=== PATIENT | female | born 1980 | race Caucasian/White ===

== ENCOUNTER → 2019-11-29 09:32 | Outpatient (BNVA) | payer BC, SELFPAY | PROVIDERS: Family Provider Family Medicine; PCP Family Medicine; Referring Provider Dermatology; Visit Provider Dermatology | DX: Z12.83 Encounter for screening for malignant neoplasm of skin (principal); D48.9 Neoplasm of uncertain behavior, unspecified; D22.9 Melanocytic nevi, unspecified; W89.1XXA Exposure to tanning bed, initial encounter; X58.XXXA Exposure to other specified factors, initial encounter; Z80.8 Family history of malignant neoplasm of other organs or systems | CPT/HCPCS: 11102; 11103; 88304; 88305; 99203 ==

== ENCOUNTER 2020-03-14 10:40 | Emergency (ER) | payer BC, SELFPAY ==
[2020-03-14 10:46] VITALS: BP 126/90; PULSE 118; RESP 18; TEMP 36.6; O2SAT 98; BMI 34.8
--- NOTE | 2020-03-14 10:58 | XR_ITS ---
WS: [id number] PORTABLE CHEST HISTORY: dyspnea/cough COMPARISON: None available. Lungs are clear and well expanded. No pleural effusion or pneumothorax. Cardiac size: Normal. Mediastinum/Aorta: Normal mediastinum. No osseous abnormality seen. XR/XR chest 1V portable [id number] IMPRESSION: Unremarkable portable chest.
--- NOTE | 2020-03-14 11:05 | W.ED.CHESTPA ---
HPI - Chest Pain General: Chief Complaint: Chest Pain Stated Complaint: Chest Pain/Tightness for 4 days/sob Time Seen by Provider: 03/14/20 10:56 History of Present Illness: HPI narrative: 39-year-old female who presents to the emergency room with complaint of chest discomfort for the last week. She states she always has a rapid heart rate she intermittently gets which she describes as tingling sensation in her chest radiating out. She has really noticed anything that makes it better or worse she has started taking an aspirin daily that seem to help some. She also feels like she has palpitations and shortness of breath with it but no diaphoresis. MD complaint: chest discomfort Onset (ago): week(s) Timing of current episode: episodic Prior episodes: Yes Onset: during rest Pain location: substernal Pain radiation: none Severity: mild Quality: tightness and shooting Relieving factors: nothing Exacerbating factors: nothing Associated symptoms: Reports dyspnea and palpitations; Deny abdominal pain, diaphoresis, fever(s), leg edema, nausea, sense of impending doom, syncope or vomiting Treatment prior to arrival: aspirin Review of Systems Const: Denies: diaphoresis ENMT: Denies: throat pain, ear or mastoid pain, nasal discharge or nasal congestion Card: Reports: palpitations; Denies: syncope Resp: Reports: dyspnea GI: Denies: abdominal pain, nausea or vomiting : Denies: flank pain, difficulty voiding, dysuria, urinary frequency or urinary urgency Skin/Breast: Denies: rash or pruritus PFSH ED PFSH: Family History Grandfather Cancer Father Cancer Social History Smoking and tobacco status: never smoked Physical Exam Const: COMMON NORMALS: no acute distress GENERAL APPEARANCE: cooperative and comfortable ORIENTATION/CONSCIOUSNESS: Yes awake, Yes oriented to person, Yes oriented to place and Yes oriented to time HENMT: COMMON NORMALS: normocephalic, atraumatic and hearing grossly normal bilaterally HEAD & SCALP: normocephalic and atraumatic Neck/C-Spine: COMMON NORMALS: no JVD Resp: COMMON NORMALS: normal respiratory effort, No retractions, No use of accessory muscles and clear to auscultation bilaterally AUSCULTATION: clear to auscultation bilaterally Cardio: COMMON NORMALS: no JVD, regular rhythm and No murmurs present (Cardio) RATE: tachycardic RHYTHM: regular rhythm GI: COMMON NORMALS: Soft to palpation and No hepatosplenomegaly present AUSCULTATION: Yes normoactive bowel sounds PALPATION: Yes Soft to palpation, No Tenderness to palpation present (GI), No Guarding due to palpation present (GI) and Yes No hepatosplenomegaly present Extremity: COMMON NORMALS: normal to inspection, capillary refill normal, no clubbing, cyanosis or edema, no calf tenderness and no pedal edema Neuro: SENSORIUM/ORIENTATION: Yes oriented to person, Yes oriented to place and Yes oriented to time Skin: COMMON NORMALS: no rashes or lesions noted GENERAL SKIN EXAM: no rashes or lesions noted Course Vital Signs: Vital signs: Vital Signs Temperature 97.9 F 03/14/20 10:46 Pulse Rate 90 03/14/20 14:22 Respiratory Rate 18 03/14/20 14:22 Blood Pressure 152/106 03/14/20 14:22 Pulse Oximetry 98 03/14/20 14:22 MDM - Chest Pain MDM Narrative: Medical decision making narrative: Patient has had this chest discomfort for over a week she states noise has a rapid heart rate she not very concerned about it while I was in the room at times it would go up in the 130s and 140s. Addition of that she has high blood pressure with blood pressures in the 150 systolic over 140 and started on just 12 and half milligrams daily of metoprolol and started on omeprazole set up for graded exercise stress test and a 24-hour Holter follow-up with her primary care doctor within the week to reevaluate blood pressure and heart rate return if has problems Lab Data: Labs: Lab Results 03/14/20 03/14/20 03/14/20 Range/Units 10:54 11:21 11:21 WBC 7.3 (4.0-10.0) 10^3/ uL RBC 4.87 (4.1-5.3) 10^6/u L Hgb 13.9 (11.5-15.3) g/dL Hct 41.4 (37.0-47.0) % MCV 85.0 (81-99) fL MCH 28.5 (28.0-34.0) pg MCHC 33.6 (30.0-36.0) g/dL RDW 12.6 (12.1-15.1) % Plt Count 354 (130-400) 10^3/c mm MPV 9.4 (7.4-10.4) fL Neut % (Auto) 54.0 % Lymph % (Auto) 36.3 % Hemphill % (Auto) 5.8 % Eos % (Auto) 3.2 % Baso % (Auto) 0.4 % Neut # (Auto) 3.95 (1.8-7.7) 10^3/u L Lymph # (Auto) 2.7 (0.8-4.8) 10^3/u L Hemphill # (Auto) 0.4 (0.2-0.9) 10^3/u L Eos # (Auto) 0.2 (0.0-0.8) 10^3/u L Baso # (Auto) 0.0 (0.0-0.1) 10^3/u L Nucleated RBC % (a uto) 0 % Nucleated RBCs # 0.0 /100WBC D-Dimer (0-0.59) ug/mIFE U Sodium 139 (136-145) mmol/L Potassium 3.9 (3.5-5.1) mmol/L Chloride 102 (98-107) mmol/L Carbon Dioxide 25 (22-29) mmol/L Anion Gap 15.9 (5-19) BUN 7 (6-20) mg/dL Creatinine 0.6 (0.5-0.9) mg/dL GFR Calculation 111.3 (90-130) mL/min Glucose 100 (65-115) mg/dL Calculated Osmolal ity 286 (285-295) mOsm/k g Calcium 9.4 (8.5-10.5) mg/dL Total Bilirubin 0.3 (0.15-1.2) mg/dL AST 18 (0-32) U/L ALT 12 (0-33) U/L Alkaline Phosphata se 50 (35-105) IU/L Creatine Kinase 68 (26-192) U/L Troponin T Gen 5 n g/L (0-10) ng/L Total Protein 7.0 (6.6-8.7) g/dL Albumin 4.3 (3.5-5.2) g/dL Globulin 2.7 (1.3-4.6) g/dL TSH 0.77 (0.27-4.20) uIU/ mL Urine Color Yellow (Yellow) Urine Appearance Clear (CLEAR) Urine pH 6.0 (5-7) Ur Specific Gravit y 1.010 (1.005-1.030) Urine Protein Neg (Negative) Urine Glucose (UA) Norm (Normal) Urine Ketones Negative (Negative) Urine Blood Neg (Negative) Urine Nitrate Negative (Negative) Urine Bilirubin Neg (Negative) Urine Urobilinogen Norm (Negative) mg/dL Ur Leukocyte Mandy ase Negative (Negative) 03/14/20 03/14/20 Range/Units 11:21 13:52 WBC (4.0-10.0) 10^3/ uL RBC (4.1-5.3) 10^6/u L Hgb (11.5-15.3) g/dL Hct (37.0-47.0) % MCV (81-99) fL MCH (28.0-34.0) pg MCHC (30.0-36.0) g/dL RDW (12.1-15.1) % Plt Count (130-400) 10^3/c mm MPV (7.4-10.4) fL Neut % (Auto) % Lymph % (Auto) % Hem[place]ill % (Auto) % Eos % (Auto) % Baso % (Auto) % Neut # (Auto) (1.8-7.7) 10^3/u L Lymph # (Auto) (0.8-4.8) 10^3/u L Hemphill # (Auto) (0.2-0.9) 10^3/u L Eos # (Auto) (0.0-0.8) 10^3/u L Baso # (Auto) (0.0-0.1) 10^3/u L Nucleated RBC % (a uto) % Nucleated RBCs # /100WBC D-Dimer 0.29 (0-0.59) ug/mIFE U Sodium (136-145) mmol/L Potassium (3.5-5.1) mmol/L Chloride (98-107) mmol/L Carbon Dioxide (22-29) mmol/L Anion Gap (5-19) BUN (6-20) mg/dL Creatinine (0.5-0.9) mg/dL GFR Calculation (90-130) mL/min Glucose (65-115) mg/dL Calculated Osmolal ity (285-295) mOsm/k g Calcium (8.5-10.5) mg/dL Total Bilirubin (0.15-1.2) mg/dL AST (0-32) U/L ALT (0-33) U/L Alkaline Phosphata se (35-105) IU/L Creatine Kinase (26-192) U/L Troponin T Gen 5 n g/L 6 (0-10) ng/L Total Protein (6.6-8.7) g/dL Albumin (3.5-5.2) g/dL Globulin (1.3-4.6) g/dL TSH (0.27-4.20) uIU/ mL Urine Color (Yellow) Urine Appearance (CLEAR) Urine pH (5-7) Ur Specific Gravit y (1.005-1.030) Urine Protein (Negative) Urine Glucose (UA) (Normal) Urine Ketones (Negative) Urine Blood (Negative) Urine Nitrate (Negative) Urine Bilirubin (Negative) Urine Urobilinogen (Negative) mg/dL Ur Leukocyte Mandy ase (Negative) Discharge Plan Discharge Patient Disposition: Home Clinical Impression: Atypical chest pain, Chest pain due to GERD, Heart palpitations, HTN (hypertension) Condition: Stable Prescriptions: New omeprazole 20 mg capsule,delayed release(DR/EC) 20 mg PO DAILY Qty: 30 RF: 0 Toprol XL 25 mg tablet extended release 24 hr 12.5 mg PO DAILY Qty: 20 RF: 0 No Action multivitamin [Daily Multi-Vitamin] Tablet 1 tab PO DAILY@22 RF: 0 aspirin 325 mg Tablet 325 mg PO DAILY RF: 0 Flonase 50 mcg/actuation [place],Suspension 1 - 2 spray INTRANASAL DAILY PRN (Reason: Allergy Symptoms) RF: 0 Augmentin 500-125 mg Tablet See Rx Instructions .ROUTE .COMPLEX RF: 0 Discharge Orders: Discharge ED (Routine); Ordered 03/14/20 Ordered By: Kush Momin Referrals: Janene Gilmore DO [Primary Care Provider] - Discharge Diet: Usual diet Discharge Activity: Resume usual activity Activity Restrictions/Additional Instructions: Case management will call with an appointment for an stress test. They will also call to set up a 24-hour Holter monitor. Coding Level of Care Code ED Supervisor [employer] for Ferming Fwd Exam Comprehensive
[2020-03-14 11:17] LABS: Add Urine Microscopic? NO
[2020-03-14 11:31] LABS: Basophils % 0.4 %; Eosinophils # 0.2 10^3/uL (0.0-0.8); Eosinophils % 3.2 %; Hematocrit 41.4 % (37.0-47.0); Hemoglobin 13.9 g/dL (11.5-15.3); Lymphocytes # 2.7 10^3/uL (0.8-4.8); Lymphocytes % 36.3 %; Mean Corpuscular HGB Conc 33.6 g/dL (30.0-36.0); Mean Corpuscular Hemoglobin 28.5 pg (28.0-34.0); Mean Platelet Volume 9.4 fL (7.4-10.4); Monocytes # 0.4 10^3/uL (0.2-0.9); Monocytes % 5.8 %; Neutrophils # 3.95 10^3/uL (1.8-7.7); Nucleated Red Blood Cells % 0 %; Platelet Count 354 10^3/cmm (130-400); Red Blood Count 4.87 10^6/uL (4.1-5.3); Red Cell Distribution Width 12.6 % (12.1-15.1); White Blood Count 7.3 10^3/uL (4.0-10.0)
[2020-03-14 11:40] LABS: Bilirubin Urine Neg (Negative); Blood Urine Neg (Negative); Glucose Urine UA Norm (Normal); Ketones Urine Negative (Negative); Leukocyte Esterase Urine Negative (Negative); Nitrate Urine Negative (Negative); Protein Urine Neg (Negative); Urine Appearance Clear (CLEAR); Urine Color Yellow (Yellow); Urobilinogen Urine Norm (Negative)
[2020-03-14 11:48] LABS: D Dimer 0.29 ug/mIFEU (0-0.59)
[2020-03-14 11:59] LABS: Alanine Aminotransferase 12 U/L (0-33); Albumin Level 4.3 g/dL (3.5-5.2); Alkaline Phosphatase 50 IU/L (35-105); Anion Gap 15.9 (5-19); Aspartate Amino Transferase 18 U/L (0-32); Blood Urea Nitrogen 7 mg/dL (6-20); Calcium 9.4 mg/dL (8.5-10.5); Carbon Dioxide 25 mmol/L (22-29); Chloride 102 mmol/L (98-107); Creatine Phosphokinase 68 U/L (26-192); Globulin 2.7 g/dL (1.3-4.6); Glomerular Filtration Rate 111.3 mL/min (90-130); Glucose 100 mg/dL (65-115); Osmolality Calculated 286 mOsm/kg (285-295); Potassium 3.9 mmol/L (3.5-5.1); Sodium 139 mmol/L (136-145); Thyroid Stimulating Hormone 0.77 uIU/mL (0.27-4.20); Total Bilirubin 0.3 mg/dL (0.15-1.2)
[2020-03-14 13:47] VITALS: BP 146/83; PULSE 104; RESP 20; O2SAT 99
[2020-03-14 14:22] VITALS: BP 152/106; PULSE 90; RESP 18; O2SAT 98
[2020-03-14 14:30] LABS: Troponin T (5th) Once 6 ng/L (0-10)
--- NOTE | 2020-03-14 14:45 | ECG_ITS ---
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 Measurements Intervals [place] Rate: 124 P: 33 MI: 108 QRS: 27 QRSD: 78 T: 38 QT: 299 QTc: 430 Interpretive Statements SINUS TACHYCARDIA WITH SHORT MI INTERVAL ABNORMAL RHYTHM ECG No previous ECG available for comparison Electronically Signed On 03-14-2020 21:05:17 INVESTMENT BANKING ASSOCIATE by Cindy Tellez M.D. [id number] f
[2020-03-14 15:15] VITALS: BP 152/106; PULSE 103; RESP 20; O2SAT 96
--- NOTE | 2020-03-15 14:53 | DCPLANNER ---
Addendum entered by Jennifer Robles 03/30/20 10:54: senior lead project manager was notified that patients insurance denied the out patient stress test. senior lead project manager called patient to inform patient of this, and to let patient know that she would need to follow up with primary care. senior lead project manager unable to speak with patient at this time, a voicemail was left for patient to return rn case mgr phone call. Original Note: senior lead project manager had message to schedule a follow up appointment for patient for an out patient stress test, and a 24 hour holter. senior lead project manager faxed order for a stress test to centralized scheduling and the order for the 24 hour holter monitor to [facility]. senior lead project manager will call for appointment information.
--- NOTE | 2020-03-17 11:32 | DCPLANNER ---
Addendum entered by Jennifer Robles 04/04/20 11:45: Patient did attend appointment scheduled for 03.29.20 with [facility]. Original Note: Patient has a follow up appointment scheduled for March 29 at 2:30. Clinic will call patient with appointment information.
== END 2020-03-14 15:16 | disposition home or self-care (01) ==
PROVIDERS: Emergency Provider Family Medicine; PCP Family Medicine
DX: R07.89 Other chest pain (principal); K21.9 Gastro-esophageal reflux disease without esophagitis; R00.2 Palpitations; I10 Essential (primary) hypertension; Z79.82 Long term (current) use of aspirin
CPT/HCPCS: 12345; 71045; 80053; 81003; 82550; 84443; 84484; 85025; 85378; 93005; 96374; 99281; 99283

== ENCOUNTER 2020-05-09 10:11 | Outpatient (CLI) | payer OTHER, SELFPAY ==
--- NOTE | 2020-05-09 10:58 | MR_ITS ---
WS: [id number] MRI HEAD WITH CONTRAST WITH ATTENTION TO THE INTERNAL AUDITORY CANALS TECHNIQUE: Sagittal T1, T2 axial, T2 axial flair, axial susceptibility weighted imaging, axial diffus ion weighted images, and coronal T2 images were obtained. Pre and post T1 axial and post T1 coronal i mages. ADC and FSPGR images. Post gadolinium images with attention to the internal auditory canals. A xial fiesta imaging. CLINICAL INFORMATION: DIZZINESS AND GIDDINESS COMPARISON: None. FINDINGS: No evidence of restricted diffusion to suggest acute ischemia. Ventricular system and basal cisterns are patent. No suspicious intracranial signal abnormalities. Normal posterior fossa. Normal vascular flow voids at the skull base. No extra-axial fluid collections. No evidence of mass or mass effect. P aranasal sinuses and mastoid air cells are well aerated. Small retention cyst left maxillary sinus. No hemosiderin on susceptibly weighted images. Proximal 7th and 8th cranial nerves are normal. No aubrey dence of enhancing IAC or CP angle mass. Normal trigeminal nerve root entry zones. Normal optic chias m and pituitary infundibulum. Normal cavernous sinuses and Meckel's cave. Normal dural venous sinuses . No abnormal intracranial enhancement. MR/MR iac's wo/w con* [id number] IMPRESSION: 1. No evidence of restricted diffusion to suggest acute ischemia. 2. No suspicious intracranial signal abnormalities. 3. Proximal 7th and 8th cranial nerves are normal in appearance. No evidence o f enhancing IAC or CP angle mass. 4. No hemosiderin on susceptibly weighted images. 5. Small retention cyst left maxillary sinus. Paranasal sinuses and mastoid ai r cells are otherwise well aerated.
== END 2020-05-09 10:12 | disposition home or self-care (01) ==
LOC: RADWPI 10:25
PROVIDERS: PCP Family Medicine; Visit Provider Specialist
DX: R42 Dizziness and giddiness (principal); M27.40 Unspecified cyst of jaw
CPT/HCPCS: 70553; A9577

== ENCOUNTER 2020-12-15 19:15 | Emergency (ER) | payer OTHER, SELFPAY ==
[2020-12-15 19:20] VITALS: BP 151/91; PULSE 149; RESP 22; TEMP 37.3; O2SAT 99; BMI 38.0
--- NOTE | 2020-12-15 19:29 | ECG_ITS ---
[facility] Test Date: 2020-12-15 Pat Name: Regine Nova Department: Room: Gender: Female Door To Door Fundraising Collector: : 1980 Requested By: Genie Kong Order Number: [id number] Ravinder MD: Kwasi Benitez M.D. Measurements Intervals Malcolm Rate: 123 P: 44 LA: 145 QRS: 25 QRSD: 93 T: 18 QT: 293 QTc: 420 Interpretive Statements SINUS TACHYCARDIA Compared to ECG 03/14/2020 10:48:04 Short LA interval no longer present Electronically Signed On 12-15-2020 20:31:58 CDT by Kwasi Benitez M.D. [id number]
--- NOTE | 2020-12-15 19:36 | ED_ITS ---
HPI - Allergic Reaction General: Chief complaint: Allergic Reaction Stated complaint: poss allergic reaction Time Seen by Provider: 12/15/20 19:29 Source: patient Mode of arrival: ambulatory Limitations: no limitations History of Present Illness: HPI narrative: 40-year-old lady here that is never used marijuana THC states she took a 25 mg gummy 2 hours ago. She states she is feeling extremely anxious and having palpitations and vomited once. Here she is very anxious and her heart rates 140. She states she feels like she is freaking out and that her heart is in a beat out of her chest. States she vomited the one time. Denies any worsening improving factors. Denies any other ingestion or alcohol use. Associated symptoms: Reports vomiting Review of Systems Const: Denies: fever(s), chills, body aches or change in appetite Eyes: Denies: blurry vision or eye discomfort ENMT: Denies: throat pain or dental pain Card: Reports: palpitations Resp: Denies: dyspnea GI: Reports: vomiting : Denies: dysuria Musc: Denies: neck pain or back pain Skin/Breast: Denies: rash Neuro: Denies: headache(s) Psych: Reports: anxiety Cecilio/Lymph: Denies: easy bruising All/Imm: Denies: urticaria PFSH ED PFSH: Medical History Psychiatric care Family History Grandfather Cancer Father Cancer Social History Smoking and tobacco status: never smoked Physical Exam Const: COMMON NORMALS: patient oriented x3 and healthy appearing GENERAL APPEARANCE: anxious HENMT: COMMON NORMALS: normocephalic and atraumatic HEAD & SCALP: normocephalic and atraumatic Eye: COMMON NORMALS: Equal, round and reactive pupils present and EOMs intact bilaterally PUPIL: Yes Equal, round and reactive pupils present Neck/C-Spine: COMMON NORMALS: full ROM and supple Chest: COMMONS NORMALS: normal inspection of the chest and normal palpation of entire chest wall Resp: COMMON NORMALS: normal respiratory effort, No retractions, No use of accessory muscles and clear to auscultation bilaterally AUSCULTATION: clear to auscultation bilaterally Cardio: COMMON NORMALS: regular rhythm and No murmurs present (Cardio) RATE: tachycardic RHYTHM: regular rhythm GI: COMMON NORMALS: Normal to inspection, nondistended, normoactive bowel sounds present, Soft to palpation, non-tender and no masses PALPATION: Yes Soft to palpation Extremity: COMMON NORMALS: normal to inspection and full ROM Neuro: COMMON NORMALS: patient oriented x3, moves all extremities and no focal motor deficits Psych: COMMON NORMALS: mental status grossly normal, Normal thought process present and cooperative MOOD & AFFECT: Yes anxious THOUGHT PROCESS: Normal thought process present Skin: COMMON NORMALS: no rashes or lesions noted and no wounds GENERAL SKIN EXAM: no rashes or lesions noted Course Vital Signs: Vital signs: Vital Signs Temperature 99.1 F 12/15/20 19:20 Pulse Rate 119 H 12/15/20 20:00 Respiratory Rate 14 12/15/20 20:00 Blood Pressure 134/78 12/15/20 20:00 Pulse Oximetry 97 12/15/20 20:00 MDM - Allergic Reaction MDM Narrative: Medical decision making narrative: Patient presents here with reaction to THC gummy. She feels much improved after Ativan her heart rates improved as well. She has no signs of cardiac cause. She is to follow-up PCP and return if worsening. She understands agrees to plan. EKG Data^: EKG 1: Attestation: I personally reviewed and interpreted this EKG as follows: EKG interpretation date: 12/15/20 EKG interpretation time: 19:56 Interpretation: sinus tach hr [address] or t wave abnormalities qrs 93 qtc 366 Discharge Plan Discharge Patient Disposition: Home Clinical Impression: Adverse reaction to drug Qualifiers: Encounter type: initial encounter Qualified Code(s): T50.905A - Adverse effect of unspecified drugs, medicaments and biological substances, initial encounter Condition: Stable Prescriptions: No Action fluticasone propionate [Flonase] 50 mcg/actuation [place],Suspension 1 - 2 spray INTRANASAL DAILY PRN (Reason: Allergy Symptoms) RF: 0 Salonpas (lidocaine) 4 % Adhesive Patch,Medicated 1 patch TOPICAL DAILY PRN (Reason: Pain) RF: 0 aspirin 325 mg Tablet 325 mg PO Q4H PRN (Reason: Pain) RF: 0 sertraline 50 mg Tablet 50 mg PO DAILY RF: 0 Discharge Orders: Discharge ED (Routine); Ordered 12/15/20 Ordered By: Genie Kong Referrals: Janene Gilmore DO [Primary Care Provider] - 1-3 days Discharge Diet: Advance as tolerated Discharge Activity: Resume usual activity Patient Instructions: Adverse Drug Reaction (ED) Coding Level of Care Code ED Facilities Flight Check Pilot for Ferming Fwd Exam Comprehensive
[2020-12-15 19:39] VITALS: PULSE 149; RESP 21; O2SAT 99
[2020-12-15] MEDS: LORazepam 2 mg/mL INJ 1 mL 1 MG IVP (19:40)
[2020-12-15] MEDS: sodium chloride 0.9% 1,000 ML 999 ML IV (19:40)
[2020-12-15 20:00] VITALS: BP 134/78; PULSE 119; RESP 14; O2SAT 97
[2020-12-15 20:59] VITALS: BP 129/80; PULSE 88; RESP 17; O2SAT 99
== END 2020-12-15 21:00 | disposition home or self-care (01) ==
PROVIDERS: Emergency Provider Emergency Medicine; PCP Family Medicine
DX: T88.7XXA Unspecified adverse effect of drug or medicament, initial encounter (principal); T40.7X5A Adverse effect of cannabis (derivatives), initial encounter; Z79.82 Long term (current) use of aspirin
CPT/HCPCS: 93005; 96361; 96374; 99284; J2060; J7030

== ENCOUNTER → 2020-12-27 17:39 | Outpatient (BNVA) | payer OTHER, SELFPAY | PROVIDERS: PCP Family Medicine; Visit Provider Registered Nurse Neonatal Intensive Care | DX: N39.0 Urinary tract infection, site not specified (principal) | CPT/HCPCS: 81000 ==

== ENCOUNTER → 2021-01-24 08:40 | Outpatient (BNVA) | payer OTHER, SELFPAY | PROVIDERS: PCP Family Medicine; Visit Provider Internal Medicine Cardiovascular Disease | DX: I48.91 Unspecified atrial fibrillation (principal); R00.0 Tachycardia, unspecified; R00.2 Palpitations | CPT/HCPCS: 85025; 85610 ==

== ENCOUNTER 2021-02-11 03:16 | Emergency (ER) | payer OTHER, SELFPAY ==
[2021-02-11 03:22] VITALS: BP 122/77; PULSE 89; RESP 18; TEMP 36.4; O2SAT 100; BMI 38.3
[2021-02-11 03:40] VITALS: BP 121/85; PULSE 97; RESP 17; O2SAT 100
[2021-02-11 03:49] LABS: Glucose Point of Care 119 mg/dL (70-110)
--- NOTE | 2021-02-11 03:56 | ECG_ITS ---
[facility] Test Date: 2021-02-11 Pat Name: Regine Nova Department: Room: Gender: Female Account Executive Metalworking: : 1980 Requested By: Abdulkadir Cornejo Order Number: [id number] Ravinder MD: Kwasi Benitez M.D. Measurements Intervals [place] Rate: 87 P: 12 AR: 135 QRS: 26 QRSD: 98 T: 33 QT: 356 QTc: 430 Interpretive Statements SINUS RHYTHM Compared to ECG 12/15/2020 19:56:22 Sinus tachycardia no longer present Electronically Signed On 02-11-2021 21:55:26 REFRIGERATOR ASSEMBLER by Kwasi Benitez M.D. [email or web address] Manager [email or web address] medical centerNext Generation Dancemercy health clermont hospitalBiba/store/NU/[id number] f
--- NOTE | 2021-02-11 03:56 | XRR_ITS ---
PROCEDURE INFORMATION: Exam: XR Chest Exam date and time: 02/11/2021 3:56 AM Age: 40 years old Clinical indication: Pain; Other: Dizziness; Other: Chest discomfort; Additional info: Dizzy, chest discomfort TECHNIQUE: Imaging protocol: XR of the chest. Views: 1 view. COMPARISON: 1. CR XR chest 1V portable [id number] 2020-03-14 11:[address] Cervical Spine wo* [id number] 2016-08-15 11:29 FINDINGS: Lungs: Unremarkable. No consolidation. Pleural spaces: Unremarkable. No pleural effusion. No pneumothorax. Heart/Mediastinum: Unremarkable. No cardiomegaly. Bones/joints: Unremarkable. XR/XR chest 1V portable [id number] IMPRESSION: No acute findings. Radiation Dose CTDIVOL = (mGy): DLP = (mGy-cm)
--- NOTE | 2021-02-11 03:56 | CTR_ITS ---
PROCEDURE INFORMATION: Exam: CT Head Without Contrast Exam date and time: 02/11/2021 3:56 AM Age: 40 years old Clinical indication: Dizziness; Additional info: Dizzy TECHNIQUE: Imaging protocol: Computed tomography of the head without contrast. Radiation optimization: All CT scans at this facility use at least one of these dose optimization techniques: automated exposure control; mA and/or kV adjustment per patient size (includes targeted exams where dose is matched to clinical indication); or iterative reconstruction. COMPARISON: 1. CT head wo con* [id number] 2016-08-15 11:27 2. MR iac's wo/w con* [id number] 2020-05-09 11:19 RADIATION DOSE METRICS: Total DLP (mGy-cm): 886.18 FINDINGS: Brain: Normal. No hemorrhage. Unremarkable white matter. No mass effect. Cerebral ventricles: No ventriculomegaly. Paranasal sinuses: Visualized sinuses are unremarkable. No fluid levels. Mastoid air cells: Visualized mastoid air cells are well aerated. Bones/joints: Unremarkable. No acute fracture. Soft tissues: Unremarkable. CT/CT head wo con* [id number] IMPRESSION: No acute intracranial abnormality. Radiation Dose CTDIVOL = (mGy): DLP = 886.18 (mGy-cm)
--- NOTE | 2021-02-11 03:59 | W.ED.DIZZY ---
Documented by User: Abdulkadir Michelle DO 02/11/21 23:58 HPI - Dizziness General: Chief Complaint: Dizziness Stated Complaint: puking, shaking, chest pain, Dizzy Time Seen by Provider: 02/11/21 03:35 History of Present Illness: HPI Narrative: 40-year-old female currently undergoing a work-up for atrial fibrillation with cardiology presents with sudden dizziness. She awoke around 2 AM dizzy and nauseated. She has had pressure in her chest. She threw up a few times. She had one episode of diarrhea as well symptoms are improved, but she still feeling dizzy. No speech problems, vision problems, or focal weakness. She does note some paresthesias to the hands and feet during these episodes. Currently she is improved to some degree. MD elicited complaint: dizziness and near syncope Pertinent past history: Meniere's disease (She does have a history of hearing loss) Onset (ago): hour(s) Timing: sudden onset Severity: moderate Description: sense of movement and off-balance Context: change in medication (Recently started metoprolol) Exacerbating factors: nothing Associated symptoms: Reports chest pain, chills, nausea, palpitations and vomiting Associated neuro symptoms: Reports diplopia, gait changes and visual changes; Deny confusion, difficulty speaking, dysphagia, extremity weakness or facial numbness Review of Systems Const: Reports: chills; Denies: fever(s) or body aches Eyes: Reports: blurry vision Card: Reports: chest pain, palpitations, irregular heart rhythm and edema Resp: Reports: dyspnea; Denies: productive cough or non-productive cough GI: Reports: nausea, vomiting and diarrhea; Denies: abdominal pain or dysphagia Neuro: Denies: confusion PFSH ED PFSH: Medical History (Updated 02/11/21 @ 06:35 by Abdulkadir Michelle DO) Benign paroxysmal positional vertigo Psychiatric care Tension headache Thyromegaly Surgical History Hx of hysterectomy Family History Grandfather Cancer CAD (coronary artery disease) Father Cancer CAD (coronary artery disease) Family/Other CAD (coronary artery disease) Cancer Brother Cancer Grandmother Cancer CAD (coronary artery disease) Grandmother Cancer Denies family history of Diabetes Clotting disorder Dementia Chronic kidney disease (CKD) Suicide Anesthesia complication Bleeding disorder Lung disease Stroke Social History Smoking and tobacco status: never smoked Alcohol intake: never Physical Exam Const: COMMON NORMALS: no acute distress, patient oriented x3 and alert GENERAL APPEARANCE: cooperative HENMT: COMMON NORMALS: normocephalic and atraumatic HEAD & SCALP: normocephalic and atraumatic Eye: COMMON NORMALS: Equal, round and reactive pupils present and EOMs intact bilaterally VISUAL OCNWAY: No visual field cut by quadrant ALIGNMENT: Yes alignment normal PUPIL: Yes Equal, round and reactive pupils present and Yes Pupil accommodation reflex normal Resp: COMMON NORMALS: normal respiratory effort and No use of accessory muscles Cardio: COMMON NORMALS: regular rate and regular rhythm RATE: regular rate RHYTHM: regular rhythm GI: COMMON NORMALS: Normal to inspection, nondistended, normoactive bowel sounds present, Soft to palpation and non-tender PALPATION: Yes Soft to palpation Neuro: COMMON NORMALS: patient oriented x3 SENSORIUM/ORIENTATION: Yes alert Course Vital Signs: Vital signs: Vital Signs Temperature 97.6 F 02/11/21 03:22 Pulse Rate 97 02/11/21 10:22 Respiratory Rate 17 02/11/21 10:22 Blood Pressure 121/85 02/11/21 10:22 Pulse Oximetry 100 02/11/21 10:22 MDM - Dizziness MDM Narrative: Medical decision making narrative: 40-year-old female presenting with a vertiginous type dizziness, several episodes of vomiting, and one episode of diarrhea at home. Currently improved after Zofran and Ativan here. Exam only reveals a few beats of nystagmus on left gaze, horizontal. No vertical or rotatory nystagmus. It resolved quickly. [id number] is normal. CT of the head is negative. First troponin is 6. EKG shows a normal sinus rhythm with normal axis, and no acute ST changes. Laboratory is benign. Awaiting a second troponin, as she has a history of atrial fibrillation. In the meantime we will get her up and walk her to see how improved she is. MRI of the brain has been ordered due to persistent vertiginous symptoms that are not necessarily positional. This of course is partially due to the fact that the patient has had a history of recent atrial fibrillation, and has not been anticoagulated. If the MR is negative for acute stroke, she will be allowed home. If positive, further work-up and treatment will be necessary. Lab Data: Labs: Lab Results 02/11/21 02/11/21 02/11/21 03:44 04:35 04:35 WBC 7.4 10^3/uL 10^3/ uL (4.0-10.0) RBC 4.70 10^6/uL 10^6 /uL (4.1-5.3) Hgb 13.6 g/dL g/dL (11.5-15.3) Hct 39.7 % % (37.0-47.0) MCV 84.5 fl fl (81-99) MCH 28.9 pg pg (28.0-34.0) MCHC 34.3 g/dL g/dL (30.0-36.0) RDW 12.6 % % (12.1-15.1) Plt Count 341 10^3/cmm 10^3 /cmm (130-400) MPV 9.9 fL fL (7.4-10.4) Neut % (Auto) 51.6 % % Lymph % (Auto) 35.3 % % [place] % (Auto) 8.0 % % Eos % (Auto) 4.3 % % Baso % (Auto) 0.7 % % Neut # (Auto) 3.83 10^3/uL 10^3 /uL (1.8-7.7) Lymph # (Auto) 2.6 10^3/uL 10^3/ uL (0.8-4.8) [place] # (Auto) 0.6 10^3/uL 10^3/ uL (0.2-0.9) Eos # (Auto) 0.3 10^3/uL 10^3/ uL (0.0-0.8) Baso # (Auto) 0.1 10^3/uL 10^3/ uL (0.0-0.1) Nucleated RBC % (a uto) 0 % % Nucleated RBCs # 0.0 /100WBC /100W BC PT 12.80 SECONDS SEC ONDS (12.1-14.9) INR 0.93 (0.8-1.2) APTT 28.0 SECONDS SECO NDS (23.9-36.7) Sodium Potassium Chloride Carbon Dioxide Anion Gap BUN Creatinine GFR Calculation Glucose POC Glucose 119 mg/dL H mg/dL (70-110) Calculated Osmolal ity Calcium Total Bilirubin AST ALT Alkaline Phosphata se Creatine Kinase Troponin T Baselin e Troponin T 120 Min [place] Troponin T Total Protein Albumin Globulin TSH HCG, Qual Urine Color Urine Appearance Urine pH Ur Specific Gravit y Urine Protein Urine Glucose (UA) Urine Ketones Urine Blood Urine Nitrate Urine Bilirubin Prot Sulfosalicyli c Acd Urine Urobilinogen Ur Leukocyte Mandy ase 02/11/21 02/11/21 02/11/21 04:35 04:35 04:35 WBC RBC Hgb Hct MCV MCH MCHC RDW Plt Count MPV Neut % (Auto) Lymph % (Auto) [place] % (Auto) Eos % (Auto) Baso % (Auto) Neut # (Auto) Lymph # (Auto) [place] # (Auto) Eos # (Auto) Baso # (Auto) Nucleated RBC % (a uto) Nucleated RBCs # PT INR APTT Sodium 138 mmol/L mmol/L (136-145) Potassium 3.5 mmol/L mmol/L (3.5-5.1) Chloride 101 mmol/L mmol/L (98-107) Carbon Dioxide 22 mmol/L mmol/L (22-29) Anion Gap 18.5 (5-19) BUN 11 mg/dL mg/dL (6-20) Creatinine 0.5 mg/dL mg/dL (0.5-0.9) GFR Calculation 136.6 mL/min H mL /min (90-130) Glucose 97 mg/dL mg/dL (65-115) POC Glucose Calculated Osmolal ity 285 mOsm/kg mOsm/ kg (285-295) Calcium 9.3 mg/dL mg/dL (8.5-10.5) Total Bilirubin 0.4 mg/dL mg/dL (0.15-1.2) AST 11 U/L U/L (0-32) ALT 6 U/L U/L (0-33) Alkaline Phosphata se 46 IU/L IU/L (35-105) Creatine Kinase 76 U/L U/L (26-192) Troponin T Baselin e 6 ng/L ng/L (0-10) Troponin T 120 Min [place] Troponin T Total Protein 7.0 g/dL g/dL (6.6-8.7) Albumin 4.1 g/dL g/dL (3.5-5.2) Globulin 2.9 g/dL g/dL (1.3-4.6) TSH 1.37 uIU/mL uIU/m L (0.27-4.20) HCG, Qual Negative (Negative) Urine Color Urine Appearance Urine pH Ur Specific Gravit y Urine Protein Urine Glucose (UA) Urine Ketones Urine Blood Urine Nitrate Urine Bilirubin Prot Sulfosalicyli c Acd Urine Urobilinogen Ur Leukocyte Mandy ase 02/11/21 02/11/21 05:15 06:23 WBC RBC Hgb Hct MCV MCH MCHC RDW Plt Count MPV Neut % (Auto) Lymph % (Auto) [place] % (Auto) Eos % (Auto) Baso % (Auto) Neut # (Auto) Lymph # (Auto) [place] # (Auto) Eos # (Auto) Baso # (Auto) Nucleated RBC % (a uto) Nucleated RBCs # PT INR APTT Sodium Potassium Chloride Carbon Dioxide Anion Gap BUN Creatinine GFR Calculation Glucose POC Glucose Calculated Osmolal ity Calcium Total Bilirubin AST ALT Alkaline Phosphata se Creatine Kinase Troponin T Baselin e Troponin T 120 Min [place] 6.00 ng/L ng/L (0-10) Delta Troponin T 0 ABS# ABS# (0-10) Total Protein Albumin Globulin TSH HCG, Qual Urine Color Yellow (Yellow) Urine Appearance Clear (CLEAR) Urine pH 8 H (5-7) Ur Specific Gravit y 1.005 (1.005-1.030) Urine Protein Neg (Negative) Urine Glucose (UA) Norm (Normal) Urine Ketones Negative (Negative) Urine Blood Neg (Negative) Urine Nitrate Negative (Negative) Urine Bilirubin Neg (Negative) Prot Sulfosalicyli c Acd Negative (Negative) Urine Urobilinogen Norm mg/dL mg/dL (Negative) Ur Leukocyte Mandy ase Negative (Negative) Discharge Plan Discharge Patient Disposition: Home Clinical Impression: Vertigo Condition: Stable Prescriptions: New Zofran 4 mg tablet 4 mg PO Q6H PRN (Reason: nausea and vomiting) Qty: 10 RF: 0 Ativan 1 mg tablet 0.5 mg PO TID PRN (Reason: nausea and vomiting) Qty: 10 RF: 0 No Action hydroxyzine HCl 10 mg tablet 10 mg PO DAILY PRNRF: 0 nitrofurantoin monohyd/m-cryst [Macrobid] 100 mg capsule 100 mg PO BID 5 Days Qty: 10 RF: 0 red yeast rice 600 mg tablet 600 mg PO BID RF: 0 coenzyme Q10 100 mg capsule 100 mg PO DAILY RF: 0 [place]-3 Krill Oil 727-77-24-50 mg capsule 1 cap PO DAILY RF: 0 aspirin [Adult Aspirin Regimen] 81 mg tablet,delayed release (DR/EC) 81 mg PO DAILY Qty: 365 RF: 1 metoprolol tartrate 25 mg tablet 25 mg PO BID Qty: 60 RF: 5 fluticasone propionate [Flonase] 50 mcg/actuation [place],Suspension 1 - 2 spray INTRANASAL DAILY PRN (Reason: Allergy Symptoms) RF: 0 Salonpas (lidocaine) 4 % Adhesive Patch,Medicated 1 patch TOPICAL DAILY PRN (Reason: Pain) RF: 0 sertraline 50 mg tablet 50 mg PO DAILY PRN (Reason: SEE PHARMACY COMMENT) RF: 0 Discharge Orders: Discharge ED (Routine); Ordered 02/11/21 Ordered By: Titi Nguyen Referrals: Janene Gilmore DO [Primary Care Provider] - 4-7 days Discharge Diet: Advance as tolerated Patient Instructions: Vertigo (ED) Activity Restrictions/Additional Instructions: Check temperatures twice daily for fever. Return for any fever, development of cough, shortness of breath, vomiting liquids or medications, other concerning symptoms. Return also for weakness, language problems, vision problems, worsening dizziness despite treatment. Medication as directed. Take scheduled for the next 24 hours, then as needed. Coding Level of Care Code ED Division Head for Chg Fwd Exam Detailed Documented by User: Titi Nguyen 02/11/21 09:51 HPI - Dizziness General: Chief Complaint: Dizziness Stated Complaint: puking, shaking, chest pain, Dizzy Time Seen by Provider: 02/11/21 03:35 PFSH ED PFSH: Medical History (Updated 02/11/21 @ 06:35 by Abdulkadir Michelle DO) Benign paroxysmal positional vertigo Psychiatric care Tension headache Thyromegaly Surgical History Hx of hysterectomy Family History Grandfather Cancer CAD (coronary artery disease) Father Cancer CAD (coronary artery disease) Family/Other CAD (coronary artery disease) Cancer Brother Cancer Grandmother Cancer CAD (coronary artery disease) Grandmother Cancer Denies family history of Diabetes Clotting disorder Dementia Chronic kidney disease (CKD) Suicide Anesthesia complication Bleeding disorder Lung disease Stroke Social History Smoking and tobacco status: never smoked Alcohol intake: never Course Vital Signs: Vital signs: Vital Signs Temperature 97.6 F 02/11/21 03:22 Pulse Rate 97 02/11/21 10:22 Respiratory Rate 17 02/11/21 10:22 Blood Pressure 121/85 02/11/21 10:22 Pulse Oximetry 100 02/11/21 10:22 MDM - Dizziness MDM Narrative: Medical decision making narrative: This patient was signed out to myself Dr. Nguyen by Dr. Michelle at 0630. Currently waiting on MRI to be obtained to the patient for her vertiginous type symptoms. The patient has a history recently being worked up for paroxysmal atrial fibrillation which she is on no current anticoagulation. Patient woke up from sleep this morning in which she was noted that she was having significant vertigo. She provided medications prior to my arrival due to concerns of potentially posterior circulation stroke MRI was without contrast will be done prior to subsequent. Discharge home. Patient remained stable condition this time reports minimal improvement of her symptoms. Patient's MRI imaging came back unremarkable this time patient was subsequent discharged home advised further follow-up follow-up outpatient with primary care in 2 to 3 days and when she was instructed to return in the interim if any of her symptoms persist or worsen. Lab Data: Labs: Lab Results 02/11/21 02/11/21 02/11/21 03:44 04:35 04:35 WBC 7.4 10^3/uL 10^3/ uL (4.0-10.0) RBC 4.70 10^6/uL 10^6 /uL (4.1-5.3) Hgb 13.6 g/dL g/dL (11.5-15.3) Hct 39.7 % % (37.0-47.0) MCV 84.5 fl fl (81-99) MCH 28.9 pg pg (28.0-34.0) MCHC 34.3 g/dL g/dL (30.0-36.0) RDW 12.6 % % (12.1-15.1) Plt Count 341 10^3/cmm 10^3 /cmm (130-400) MPV 9.9 fL fL (7.4-10.4) Neut % (Auto) 51.6 % % Lymph % (Auto) 35.3 % % [place] % (Auto) 8.0 % % Eos % (Auto) 4.3 % % Baso % (Auto) 0.7 % % Neut # (Auto) 3.83 10^3/uL 10^3 /uL (1.8-7.7) Lymph # (Auto) 2.6 10^3/uL 10^3/ uL (0.8-4.8) [place] # (Auto) 0.6 10^3/uL 10^3/ uL (0.2-0.9) Eos # (Auto) 0.3 10^3/uL 10^3/ uL (0.0-0.8) Baso # (Auto) 0.1 10^3/uL 10^3/ uL (0.0-0.1) Nucleated RBC % (a uto) 0 % % Nucleated RBCs # 0.0 /100WBC /100W BC PT 12.80 SECONDS SEC ONDS (12.1-14.9) INR 0.93 (0.8-1.2) APTT 28.0 SECONDS SECO NDS (23.9-36.7) Sodium Potassium Chloride Carbon Dioxide Anion Gap BUN Creatinine GFR Calculation Glucose POC Glucose 119 mg/dL H mg/dL (70-110) Calculated Osmolal ity Calcium Total Bilirubin AST ALT Alkaline Phosphata se Creatine Kinase Troponin T Baselin e Troponin T 120 Min [place] Troponin T Total Protein Albumin Globulin TSH HCG, Qual Urine Color Urine Appearance Urine pH Ur Specific Gravit y Urine Protein Urine Glucose (UA) Urine Ketones Urine Blood Urine Nitrate Urine Bilirubin Prot Sulfosalicyli c Acd Urine Urobilinogen Ur Leukocyte Mandy ase 02/11/21 02/11/21 02/11/21 04:35 04:35 04:35 WBC RBC Hgb Hct MCV MCH MCHC RDW Plt Count MPV Neut % (Auto) Lymph % (Auto) [place] % (Auto) Eos % (Auto) Baso % (Auto) Neut # (Auto) Lymph # (Auto) [place] # (Auto) Eos # (Auto) Baso # (Auto) Nucleated RBC % (a uto) Nucleated RBCs # PT INR APTT Sodium 138 mmol/L mmol/L (136-145) Potassium 3.5 mmol/L mmol/L (3.5-5.1) Chloride 101 mmol/L mmol/L (98-107) Carbon Dioxide 22 mmol/L mmol/L (22-29) Anion Gap 18.5 (5-19) BUN 11 mg/dL mg/dL (6-20) Creatinine 0.5 mg/dL mg/dL (0.5-0.9) GFR Calculation 136.6 mL/min H mL /min (90-130) Glucose 97 mg/dL mg/dL (65-115) POC Glucose Calculated Osmolal ity 285 mOsm/kg mOsm/ kg (285-295) Calcium 9.3 mg/dL mg/dL (8.5-10.5) Total Bilirubin 0.4 mg/dL mg/dL (0.15-1.2) AST 11 U/L U/L (0-32) ALT 6 U/L U/L (0-33) Alkaline Phosphata se 46 IU/L IU/L (35-105) Creatine Kinase 76 U/L U/L (26-192) Troponin T Baselin e 6 ng/L ng/L (0-10) Troponin T 120 Min [place] Troponin T Total Protein 7.0 g/dL g/dL (6.6-8.7) Albumin 4.1 g/dL g/dL (3.5-5.2) Globulin 2.9 g/dL g/dL (1.3-4.6) TSH 1.37 uIU/mL uIU/m L (0.27-4.20) HCG, Qual Negative (Negative) Urine Color Urine Appearance Urine pH Ur Specific Gravit y Urine Protein Urine Glucose (UA) Urine Ketones Urine Blood Urine Nitrate Urine Bilirubin Prot Sulfosalicyli c Acd Urine Urobilinogen Ur Leukocyte Mandy ase 02/11/21 02/11/21 05:15 06:23 WBC RBC Hgb Hct MCV MCH MCHC RDW Plt Count MPV Neut % (Auto) Lymph % (Auto) [place] % (Auto) Eos % (Auto) Baso % (Auto) Neut # (Auto) Lymph # (Auto) [place] # (Auto) Eos # (Auto) Baso # (Auto) Nucleated RBC % (a uto) Nucleated RBCs # PT INR APTT Sodium Potassium Chloride Carbon Dioxide Anion Gap BUN Creatinine GFR Calculation Glucose POC Glucose Calculated Osmolal ity Calcium Total Bilirubin AST ALT Alkaline Phosphata se Creatine Kinase Troponin T Baselin e Troponin T 120 Min [place] 6.00 ng/L ng/L (0-10) Delta Troponin T 0 ABS# ABS# (0-10) Total Protein Albumin Globulin TSH HCG, Qual Urine Color Yellow (Yellow) Urine Appearance Clear (CLEAR) Urine pH 8 H (5-7) Ur Specific Gravit y 1.005 (1.005-1.030) Urine Protein Neg (Negative) Urine Glucose (UA) Norm (Normal) Urine Ketones Negative (Negative) Urine Blood Neg (Negative) Urine Nitrate Negative (Negative) Urine Bilirubin Neg (Negative) Prot Sulfosalicyli c Acd Negative (Negative) Urine Urobilinogen Norm mg/dL mg/dL (Negative) Ur Leukocyte Mandy ase Negative (Negative) Discharge Plan Discharge Patient Disposition: Home Clinical Impression: Vertigo Condition: Stable Prescriptions: New Zofran 4 mg tablet 4 mg PO Q6H PRN (Reason: nausea and vomiting) Qty: 10 RF: 0 Ativan 1 mg tablet 0.5 mg PO TID PRN (Reason: nausea and vomiting) Qty: 10 RF: 0 No Action hydroxyzine HCl 10 mg tablet 10 mg PO DAILY PRNRF: 0 nitrofurantoin monohyd/m-cryst [Macrobid] 100 mg capsule 100 mg PO BID 5 Days Qty: 10 RF: 0 red yeast rice 600 mg tablet 600 mg PO BID RF: 0 coenzyme Q10 100 mg capsule 100 mg PO DAILY RF: 0 [place]-3 Krill Oil [id number] mg capsule 1 cap PO DAILY RF: 0 aspirin [Adult Aspirin Regimen] 81 mg tablet,delayed release (DR/EC) 81 mg PO DAILY Qty: 365 RF: 1 metoprolol tartrate 25 mg tablet 25 mg PO BID Qty: 60 RF: 5 fluticasone propionate [Flonase] 50 mcg/actuation [place],Suspension 1 - 2 spray INTRANASAL DAILY PRN (Reason: Allergy Symptoms) RF: 0 Salonpas (lidocaine) 4 % Adhesive Patch,Medicated 1 patch TOPICAL DAILY PRN (Reason: Pain) RF: 0 sertraline 50 mg tablet 50 mg PO DAILY PRN (Reason: SEE PHARMACY COMMENT) RF: 0 Discharge Orders: Discharge ED (Routine); Ordered 02/11/21 Ordered By: Titi Nguyen Referrals: Janene Gilmore DO [Primary Care Provider] - 4-7 days Discharge Diet: Advance as tolerated Patient Instructions: Vertigo (ED) Activity Restrictions/Additional Instructions: Check temperatures twice daily for fever. Return for any fever, development of cough, shortness of breath, vomiting liquids or medications, other concerning symptoms. Return also for weakness, language problems, vision problems, worsening dizziness despite treatment. Medication as directed. Take scheduled for the next 24 hours, then as needed. Coding Level of Care Code ED Division Head for Chg Fwd Exam Detailed
[2021-02-11] MEDS: ondansetron 2 mg/ML SDV 2 mL 4 MG IVP ×2 (04:27→05:29)
[2021-02-11] MEDS: LORazepam 2 mg/mL INJ 1 mL 0.5 MG IVP ×2 (04:27→05:29)
[2021-02-11] MEDS: sodium chloride 0.9% 1,000 ML 999 ML IV (04:44)
[2021-02-11 05:09] LABS: Basophils # 0.1 10^3/uL (0.0-0.1); Basophils % 0.7 %; Eosinophils # 0.3 10^3/uL (0.0-0.8); Eosinophils % 4.3 %; Hematocrit 39.7 % (37.0-47.0); Hemoglobin 13.6 g/dL (11.5-15.3); Lymphocytes # 2.6 10^3/uL (0.8-4.8); Lymphocytes % 35.3 %; Mean Corpuscular HGB Conc 34.3 g/dL (30.0-36.0); Mean Corpuscular Hemoglobin 28.9 pg (28.0-34.0); Mean Corpuscular Volume 84.5 fl (81-99); Mean Platelet Volume 9.9 fL (7.4-10.4); Monocytes # 0.6 10^3/uL (0.2-0.9); Neutrophils # 3.83 10^3/uL (1.8-7.7); Neutrophils % 51.6 %; Nucleated Red Blood Cells % 0 %; Platelet Count 341 10^3/cmm (130-400); Red Cell Distribution Width 12.6 % (12.1-15.1); White Blood Count 7.4 10^3/uL (4.0-10.0)
[2021-02-11 05:23] LABS: Add Urine Microscopic? NO; Charge for UA Resulting for Rev
[2021-02-11 05:24] LABS: HCG, Serum Qual Negative (Negative)
[2021-02-11 05:26] LABS: INR 0.93 (0.8-1.2)
[2021-02-11 05:35] LABS: Alanine Aminotransferase 6 U/L (0-33); Albumin Level 4.1 g/dL (3.5-5.2); Alkaline Phosphatase 46 IU/L (35-105); Anion Gap 18.5 (5-19); Aspartate Amino Transferase 11 U/L (0-32); Blood Urea Nitrogen 11 mg/dL (6-20); Calcium 9.3 mg/dL (8.5-10.5); Carbon Dioxide 22 mmol/L (22-29); Chloride 101 mmol/L (98-107); Creatine Phosphokinase 76 U/L (26-192); Globulin 2.9 g/dL (1.3-4.6); Glomerular Filtration Rate 136.6 mL/min (90-130); Glucose 97 mg/dL (65-115); Osmolality Calculated 285 mOsm/kg (285-295); Potassium 3.5 mmol/L (3.5-5.1); Sodium 138 mmol/L (136-145); Total Bilirubin 0.4 mg/dL (0.15-1.2)
[2021-02-11 05:36] LABS: Troponin(5th) Baseline 6 ng/L (0-10)
[2021-02-11 05:38] LABS: Bilirubin Urine Neg (Negative); Blood Urine Neg (Negative); Glucose Urine UA Norm (Normal); Ketones Urine Negative (Negative); Leukocyte Esterase Urine Negative (Negative); Nitrate Urine Negative (Negative); Protein Urine Neg (Negative); Specific Gravity, Urine 1.005 (1.005-1.030); Sulfosalicylic Acid Urine Negative (Negative); Urine Appearance Clear (CLEAR); Urine Color Yellow (Yellow); Urobilinogen Urine Norm (Negative); pH Urine 8 (5-7)
--- NOTE | 2021-02-11 05:56 | ECG_ITS ---
[facility] Test Date: 2021-02-11 Pat Name: Regine Nova Department: Room: Gender: Female Rayon Winder: : 1980 Requested By: Abdulkadir Cornejo Order Number: [id number] Ravinder MD: Kwasi Benitez M.D. Measurements Intervals [place] Rate: 86 P: 6 ME: 133 QRS: 13 QRSD: 84 T: 12 QT: 346 QTc: 416 Interpretive Statements SINUS RHYTHM Compared to ECG 12/15/2020 19:56:22 Sinus tachycardia no longer present Electronically Signed On 02-11-2021 21:59:02 PRECISION INSPECTOR by Kwasi Benitez M.D. [id number]
[2021-02-11 05:58] LABS: Thyroid Stimulating Hormone 1.37 uIU/mL (0.27-4.20)
--- NOTE | 2021-02-11 06:40 | MRR_ITS ---
PROCEDURE INFORMATION: Exam: MR Head Without and With Contrast Exam date and time: 02/11/2021 6:40 AM Age: 40 years old Clinical indication: Dizziness; Additional info: Vertigo, nystagmus TECHNIQUE: Imaging protocol: MR of the head without and with intravenous contrast. Contrast material: MULTIHANCE; Contrast volume: 20 ml; Contrast route: INTRAVENOUS (IV); COMPARISON: CT head wo con* [id number] 02/11/2021 4:51 AM FINDINGS: Brain: Normal. No acute infarct. No hemorrhage. No significant white matter disease. No edema. There is no abnormal enhancement after gadolinium. Cerebral ventricles: Normal. No ventriculomegaly. Bones/joints: Unremarkable. Paranasal sinuses: There is a small retention cyst in the left maxillary sinus. Mastoid air cells: Normal as visualized. No mastoid effusion. Orbital cavity: Unremarkable. Soft tissues: Unremarkable. MR/MR head wo/w con [id number] IMPRESSION: No abnormality is seen in the brain. Radiation Dose CTDIVOL = (mGy): DLP = (mGy-cm)
[2021-02-11 06:49] LABS: Troponin 5 2HR Delta 0 ABS# (0-10)
[2021-02-11] MEDS: gadobenate dimeglumine 20 mL vial IV (08:49)
[2021-02-11 10:22] VITALS: BP 121/85; PULSE 97; RESP 17; O2SAT 100
== END 2021-02-11 10:22 | disposition home or self-care (01) ==
PROVIDERS: Emergency Medicine; Emergency Provider Emergency Medicine; PCP Family Medicine
DX: R42 Dizziness and giddiness (principal); Z79.82 Long term (current) use of aspirin
CPT/HCPCS: 36416; 70450; 70553; 71045; 80053; 81003; 82550; 82962; 84443; 84484; 84703; 85025; 85610; 85730; 93005; 96361; 96374; 96375; 99283; A9577; J2060; J2405; J7030

== ENCOUNTER → 2021-02-19 08:48 | Outpatient (BNVA) | payer OTHER, SELFPAY | PROVIDERS: PCP Family Medicine; Visit Provider Internal Medicine Cardiovascular Disease | DX: E78.5 Hyperlipidemia, unspecified (principal) | CPT/HCPCS: 80061 ==

== ENCOUNTER 2021-03-15 12:52 | Outpatient (CLI) | payer OTHER, SELFPAY ==
--- NOTE | 2021-03-15 13:30 | USCV_ITS ---
Regine Nova Age: 40 Gender: F : 1980 Exam Date: 03/15/2021 13:08 Ordering Phys: Gorge Doty MD ([email or web address]) Technologist: FRANCISCO JAVIER Exam Location: [facility] [place] Indication: PALPITATIONS BP: 136 / 74 HR: 88 Rhythm: Sinus Technical Quality: Adequate MEASUREMENTS (Male / Female) Normal Values 2D ECHO LV Diastolic Diameter PLAX 3.5 cm 4.2 - 5.9 / 3.9 - 5.3 cm LV Systolic Diameter PLAX 2.8 cm IVS Diastolic Thickness 1.4 cm 0.6 - 1.0 / 0.6 - 0.9 cm IVS Systolic Thickness 1.8 cm LVPW Diastolic Thickness 1.4 cm 0.6 - 1.0 / 0.6 - 0.9 cm LVPW Systolic Thickness 1.7 cm RV Chamber Size 2.9 cm LV Ejection Fraction 2D Teich 46.0 % LV Ejection Fraction MOD 2C 52.2 % LV Ejection Fraction 2C AL 51.4 % LA Diameter 3.5 cm LA Width 3.3 cm LA Height 4.7 cm RA Width 2.8 cm RA Height 4.2 cm Aorta at Sinotubular Diameter 2.7 cm M-MODE Aortic Annulus Diameter 3.1 cm LA Ao Ratio MM 1.1 MV E Point Septal Separation 0.4 cm DOPPLER AV Peak Velocity 117.0 cm/s LVOT Peak Velocity 86.0 cm/s MV Area PHT 5.0 cm squared Mitral E to A Ratio 1.5 MV E' Velocity 54.5 cm/s Mitral E to MV E' Ratio 6.9 Mitral E to LV E' Lateral Ratio 5.5 Mitral E to LV E' Septal Ratio 9.1 TR Peak Velocity 369.0 cm/s TR Peak Gradient 54.5 mmHg TV Peak E Velocity 73.0 cm/s PV Peak Velocity 95.0 cm/s RV Acceleration Time 0.1 s RV Ejection Time 0.3 s RV AcT/ET 0.3 FINDINGS Left Ventricle Normal left ventricular size and systolic function, EF55%. No gross wall motion abnormalities Right Ventricle The right ventricle is normal in size and function. Right Atrium The right atrium is normal in size. Left Atrium The left atrium is normal in size. Mitral Valve Minimally thickened anterior mitral leaflet. Aortic Valve No gross abnormalities noted Tricuspid Valve No gross abnormalities noted Pulmonic Valve No gross abnormalities noted Pericardium Normal pericardium without effusion. Aorta Normal ascending aorta dimension. CONCLUSIONS Normal left ventricular size and systolic function, EF 55%. No gross wall motion abnormalities. Minimally thickened anterior mitral leaflet. No significant stenotic or regurgitant lesions Normal cardiac chamber sizes There is no pericardial effusion. There are no intracardiac masses. No previous study is available for comparison. Dr oGrge Doty MD FACC (Electronically Signed) Final Date: 16 March 2021 15:40 S
== END 2021-03-15 12:53 | disposition home or self-care (01) ==
LOC: RAD 12:54
PROVIDERS: PCP Family Medicine; Visit Provider Internal Medicine Cardiovascular Disease
DX: R00.2 Palpitations (principal); I05.9 Rheumatic mitral valve disease, unspecified
CPT/HCPCS: 93306

== ENCOUNTER 2021-03-23 08:01 | Outpatient (CLI) | payer OTHER, SELFPAY ==
[2021-03-23 08:34] VITALS: BMI 36.9
--- NOTE | 2021-03-23 08:36 | ECG_ITS ---
[facility] Test Date: 2021-03-23 Pat Name: Regine Nova Department: Room: Gender: Female Working Foreman: : 1980 Requested By: Gorge Doty Order Number: [id number] Ravinder MD: Gorge Doty M.D. Interpretive Statements NAME OF STUDY: EXERCISE SESTAMIBI STRESS TEST INDICATION: SYMPTOMATIC ARRHYTHMIA PROCEDURE: The baseline electrocardiogram showed normal sinus rhythm with normal ST-Ts. At the baseline, the patient's blood pressure was 123/70 mm Hg with a heart rate of 93. The patient exercised for 6 mins on a standard Eduardo protocol. Patient attained a maximum heart rate of 166 beats per minute(92% of the maximum predicted heart rate) with a blood pressure at the peak exercise of 151/61 mm Hg. The EKG at the peak exercise revealed no significant changes. Patient did not have any chest pain or any significant arrhythmis with the exercise Sestamibi was injected 1 minute prior to the peak exercise During the recovery phase, there were no new changes. Blood pressure at the end of the recovery phase was 117/81 mm Hg with a heart rate of 109 per minute. CONCLUSION: 1. No significant EKG changes with the [treadmill exercise 2. No exercise-induced chest pain or cardiac arrhythmia 3. Slightly impaired exercise tolerance, attained a maximum of 7.0 METs 4. Sestamibi/Sestamibi perfusion results pending; see separate report. Electronically Signed On 04-01-2021 19:25:56 SUPERVISOR BOARDING by Gorge Doty M.D. [id number]
--- NOTE | 2021-03-23 08:36 | NMCV_ITS ---
NM hunter perf SPECT r/s* [id number] Regine Nova Age: 40 Gender: F : 1980 Exam Date: 03/23/2021 09:09 Ordering Phys: Gorge Doty MD ([email or web address]) Technologist: AWILDA Grace Exam Location: [facility] Indications: AFIB STRESS TEST Please see separate stress test report in [facility] for full findings IMAGE PROTOCOL Rest/Stress 1 Exercise Day Radiopharmaceutical Dose (mCi) Administration Site Administered by Rest: Tc-99m 10.9 IV AWILDA Swift Sestamibi Stress:Tc-99m 32.8 IV AWILDA Grace Sestamijigar Rest: 23-Mar-2021 60 Discovery 630 Stress: 23-Mar-2021 30 Discovery 630 Radiopharmaceutical was injected at 91 % maximum heart rate. Images obtained in supine and prone position. SPECT RESULTS Technical Quality: Excellent Raw Data Analysis: Normal Image Corrections: No attenuation or motion correction applied Summed Stress Score: 0 Summed Rest Score: 1 Summed Difference Score: 0 PERFUSION FINDINGS Small area of slightly decreased tracer uptake in the mid and apical inferior wall region with no significant reversibility. FUNCTIONAL RESULTS (calculated via Gated SPECT) Stress Image LV EF (%): 67 Stress EDV (mL):93 TID: 0.8 Stress ESV (mL):31 FUNCTIONAL FINDINGS: Segmental wall motion analysis revealing no gross wall motion normalities IMPRESSIONS 1. Myocardial perfusion imaging revealing a small area of persistent decreased tracer uptake in the inferior wall region suggestive of myocardial scarring versus attenuation artifact. 2. Normal LV ejection fraction of 67%. 3. LV wall motion analysis revealing no gross wall motion abnormalities 4. Normal LV volume No significant coronary ischemia, based on the above findings Dr Gorge Doty MD FACC (Electronically Signed) Final Date: 29 March 2021 00:35 S
[2021-03-23 10:53] VITALS: BP 122/84; PULSE 99
== END 2021-03-23 08:02 | disposition home or self-care (01) ==
LOC: CDL 08:02
PROVIDERS: PCP Family Medicine; Visit Provider Internal Medicine Cardiovascular Disease
DX: I49.9 Cardiac arrhythmia, unspecified (principal); R06.02 Shortness of breath
CPT/HCPCS: 78452; 93017; A9500

== ENCOUNTER → 2022-01-15 17:54 | Outpatient (BNVA) | payer OTHER, SELFPAY | PROVIDERS: PCP Family Medicine; Visit Provider Emergency Medicine | DX: R39.9 Unspecified symptoms and signs involving the genitourinary system (principal); N30.01 Acute cystitis with hematuria | CPT/HCPCS: 81000 ==

== ENCOUNTER 2022-02-01 09:42 | Outpatient (CLI) | payer OTHER, MEDICAID, SELFPAY ==
[2022-02-01 10:28] LABS: Basophils # 0.1 10^3/uL (0.0-0.1); Basophils % 0.7 %; Eosinophils # 0.5 10^3/uL (0.0-0.8); Hematocrit 41.2 % (37.0-47.0); Hemoglobin 13.6 g/dL (11.5-15.3); Lymphocytes # 2.4 10^3/uL (0.8-4.8); Lymphocytes % 31.9 %; Mean Corpuscular Hemoglobin 28.9 pg (28.0-34.0); Mean Corpuscular Volume 87.7 fl (81-99); Mean Platelet Volume 9.1 fL (7.4-10.4); Monocytes # 0.7 10^3/uL (0.2-0.9); Monocytes % 9.3 %; Neutrophils # 3.86 10^3/uL (1.8-7.7); Neutrophils % 51.6 %; Nucleated Red Blood Cells % 0 %; Platelet Count 328 10^3/cmm (130-400); Red Cell Distribution Width 12.5 % (12.1-15.1); White Blood Count 7.5 10^3/uL (4.0-10.0)
[2022-02-01 11:11] LABS: Alanine Aminotransferase 12 U/L (0-33); Albumin Level 3.9 g/dL (3.5-5.2); Alkaline Phosphatase 44 U/L (35-105); Aspartate Amino Transferase 13 U/L (0-32); Blood Urea Nitrogen 13 mg/dL (6-20); Calcium 9.2 mg/dL (8.5-10.5); Carbon Dioxide 24 mmol/L (22-29); Chloride 103 mmol/L (98-107); Chol HDL Ratio 5.68 mg/dL (0.0-4.40); Cholesterol 227 mg/dL (0-200); Globulin 3.2 g/dL (1.3-4.6); Glomerular Filtration Rate 110.2 mL/min (90-130); Glucose 83 mg/dL (65-115); HDL Cholesterol 40 mg/dL (60-100); LDL Cholesterol Calculated 139 mg/dL (50-129); LDL HDL Ratio 3.48 RATIO (0.00-3.22); Osmolality Calculated 283 mOsm/kg (285-295); Sodium 137 mmol/L (136-145); Thyroid Stimulating Hormone 1.17 uIU/mL (0.27-4.20); Total Bilirubin 0.4 mg/dL (0.15-1.2); Total Protein 7.1 g/dL (6.6-8.7); Triglycerides 242 mg/dL (0-150)
[2022-02-04 15:58] LABS: Egg White (F1) Ige 0.39 kU/L; Egg White Class 1; Immunoglobulin E 113 kU/L (<OR=114); Maize Corn Class 0; Maize/Corn (F8) Ige <0.10 kU/L; Oat (F7) Ige <0.10 kU/L; Oat Class 0; Pork Class 0; Potato (F35) Ige <0.10 kU/L; Potato Class 0; Rye (F5) Ige 0.59 kU/L; Rye Class 1; Soybean (F14) Ige <0.10 kU/L; Soybean Class 0; Tomato (F25) Ige <0.10 kU/L; Tomato Class 0; Wheat (F4) Ige 0.77 kU/L; Wheat Class 2
[2022-02-04 20:18] LABS: Allergen Beef Igg 11.9 mcg/mL (<2.0); Allergen Cacao (Chocolate) Igg 3.8 mcg/mL (<2.0); Allergen Chicken Meat Igg <2.0 mcg/mL (<2.0); Allergen Peanut Igg 3.2 mcg/mL (<2.0); Barley (F6) Igg 28.3 mcg/mL (<2.0); Yeast (F45) Igg 5.2 mcg/mL (<2.0)
[2022-02-05 09:38] LABS: Beef (BOS SPP) Class 0; Galactose-alpha-1,3 IgE <0.10 kU/L (<0.10); Lamb / Mutton (Ovis SPP) IgE <0.10 kU/L (<0.35); Lamb / Mutton Class 0; Pork Class 0
== END 2022-02-01 09:43 | disposition home or self-care (01) ==
PROVIDERS: PCP Family Medicine; Visit Provider Family Medicine
DX: K52.9 Noninfective gastroenteritis and colitis, unspecified (principal); R19.7 Diarrhea, unspecified
CPT/HCPCS: 36415; 80053; 80061; 84443; 85025; 86003; 86008

== ENCOUNTER 2022-02-14 12:16 | Outpatient (CLI) | payer OTHER, MEDICAID, SELFPAY ==
--- NOTE | 2022-02-14 12:22 | MM_ITS ---
WS: [id number] SCREENING DIGITAL TOMOSYNTHESIS MAMMOGRAM WITH CAD HISTORY: SCREENING COMPARISON: 08/17/2015 Bilateral CC and MLO with tomosynthesis views submitted. Synthetic mammography reviewed. Computer aid ed detection analyzed. Breast composition: There are scattered areas of fibroglandular density. No suspicious masses, microc alcifications or architectural distortion. MM/[place] [id number] IMPRESSION: BI-RADS: 1-Negative FOLLOW UP: 1 Year Follow-up
== END 2022-02-14 12:17 | disposition home or self-care (01) ==
LOC: RAD 12:17
PROVIDERS: PCP Family Medicine; Visit Provider Family Medicine
DX: Z12.31 Encounter for screening mammogram for malignant neoplasm of breast (principal)
CPT/HCPCS: 77063; 77067

== ENCOUNTER 2022-03-03 13:26 | Emergency (ER) | payer OTHER, MEDICAID, SELFPAY ==
[2022-03-03 13:41] VITALS: BP 167/82; PULSE 86; RESP 16; TEMP 36.5; O2SAT 99
--- NOTE | 2022-03-03 15:05 | CTR_ITS ---
PROCEDURE INFORMATION: Exam: CT Abdomen And Pelvis Without Contrast Exam date and time: 03/03/2022 3:20 PM Age: 41 years old Clinical indication: Abdominal pain; Flank; Left; Prior surgery; Surgery type: Hysto; Additional info: Left CVA tenderness TECHNIQUE: Imaging protocol: Computed tomography of the abdomen and pelvis without contrast. Axial, coronal and sagittal reformatted images were created and reviewed. Radiation optimization: All CT scans at this facility use at least one of these dose optimization techniques: automated exposure control; mA and/or kV adjustment per patient size (includes targeted exams where dose is matched to clinical indication); or iterative reconstruction. COMPARISON: CT lumbar spine wo con* [id number] 08/15/2016 11:32 AM RADIATION DOSE METRICS: Total DLP (mGy-cm): 1272.73 FINDINGS: Diaphragm: Small hiatal hernia. Liver: Unremarkable. Gallbladder and bile ducts: No radiodense gallstones. No biliary ductal dilatation. Pancreas: Unremarkable. Spleen: Unremarkable. Adrenal glands: Normal. No mass. Kidneys and ureters: 3 cm left renal cyst (no follow-up is indicated based on the imaging appearance). No radiodense calculi. No hydronephrosis. Stomach and bowel: Scattered colonic diverticula without evidence of diverticulitis. No obstruction. No bowel wall thickening. No pneumatosis. Appendix: Normal. Intraperitoneal space: No free fluid. No organized fluid collection. No free air. Vasculature: Unremarkable. No aneurysm. Lymph nodes: No pathologically enlarged lymph nodes. Urinary bladder: Unremarkable as visualized. Reproductive: Status post hysterectomy. Bones/joints: No acute osseous abnormality. Mild degenerative changes. Soft tissues: Tiny, fat containing umbilical hernia. CT/CT kidney stone [id number] IMPRESSION: 1. Limited noncontrast examination without CT evidence of acute intra-abdominal or pelvic pathology. 2. Additional findings, as above. COMMENTS: Consistent with the [employer]'s Incidental Findings Committee white paper (J Am Sara Radiol 2018): Any incidental renal lesion less than 1 cm or classified as too small to characterize, or any incidental cystic renal lesion characterized as simple-appearing, is likely benign. No follow-up imaging is recommended for these lesions per consensus recommendations based on imaging criteria.
[2022-03-03 15:12] LABS: HCG Qualitative Urine. Negative (Negative); Urine Appearance Clear (CLEAR); Urine Color Yellow (Yellow); pH Urine 6.5 (5-7)
[2022-03-03 15:13] LABS: Add Urine Microscopic? YES; Bilirubin Urine Neg (Negative); Blood Urine 3+ (Negative); Glucose Urine UA Norm (Normal); Ketones Urine Negative (Negative); Leukocyte Esterase Urine 2+ (Negative); Nitrate Urine Negative (Negative); Protein Urine Trace (Negative); Urobilinogen Urine Neg (Negative)
--- NOTE | 2022-03-03 15:26 | ED_ITS ---
HPI - Female Genitourinary General: Chief complaint: Urogenital-Female Stated complaint: possible kidney stone Time Seen by Provider: 03/03/22 14:50 History of Present Illness: Patient reports that she thinks she might have a kidney stone. She reports that off and on since January she has been struggling with intermittent left-sided back pain and lower bladder pain. She reports that when she pees it hurts extremely bad. She reports that she has had testing done at [facility] in [place] and they did do an ultrasound on her bladder and kidney and they told her there were no stones but she had a cyst on her left kidney at that time. Give her an antibiotic just in case there was an infection. She reports that she has been pretty good for the past several weeks until about 2 to 3 days ago. She reports that she has significant pain whenever she tries to urinate and then occasionally she will just have pain come on acutely that she has to breathe through. She reports the pain is in her bladder and also in her left side back. She reports that this time she is having blood in her urine. She denies fever or chills. She denies any possibility of stating that she has had a hysterectomy. 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 Psychiatric care Tension headache Thyromegaly Surgical History Hx of hysterectomy Family History Grandfather Cancer CAD (coronary artery disease) Father Cancer CAD (coronary artery disease) Family/Other CAD (coronary artery disease) Cancer Brother Cancer Grandmother Cancer CAD (coronary artery disease) Grandmother Cancer Denies family history of Diabetes Clotting disorder Dementia Chronic kidney disease (CKD) Suicide Anesthesia complication Bleeding disorder Lung disease Stroke Social History Alcohol intake: never Physical Exam Const: COMMON NORMALS: no acute distress, patient oriented x3 and alert Neck/C-Spine: COMMON NORMALS: no JVD Resp: COMMON NORMALS: normal respiratory effort, No use of accessory muscles and clear to auscultation bilaterally AUSCULTATION: clear to auscultation bilaterally Cardio: COMMON NORMALS: no JVD, regular rate, regular rhythm, S1 normal heart sound present, S2 normal heart sound present and No murmurs present (Cardio) RATE: regular rate RHYTHM: regular rhythm HEART SOUNDS: S1 normal heart sound present and S2 normal heart sound present GI: COMMON NORMALS: Normal to inspection, nondistended, normoactive bowel sounds present, Soft to palpation and non-tender PALPATION: Yes Soft to palpation : BLADDER/KIDNEY EXAM: Yes CVA tenderness on the left Back/Pelvis: GENERAL BACK: Yes CVA tenderness Neuro: COMMON NORMALS: patient oriented x3 SENSORIUM/ORIENTATION: Yes alert Course Vital Signs: Vital signs: Vital Signs Temperature 97.7 F 03/03/22 13:41 Pulse Rate 86 03/03/22 13:41 Respiratory Rate 16 03/03/22 13:41 Blood Pressure 167/82 03/03/22 13:41 Pulse Oximetry 99 03/03/22 13:41 Oxygen Delivery Me thod 03/03/22 13:41 MDM - Female Medical Decision Making Consider urinary tract infection, pyelonephritis, renal stone, hematuria, bladder stone, renal colic. UA shows positive hematuria. CT scan did not show any evidence of acute intra-abdominal or pelvic pathology. There is a renal cyst which patient reports was noted a couple months ago on previous scan. I suspect with patient's report of tissue being passed in her urine prior to arrival in the ER that patient may have passed a stone prior to being scanned today. Patient is on metoprolol for arrhythmia so at this point I will not put her on Flomax due to the risk of hypotension. Patient reports that even when she takes Benadryl on this medication her blood pressure does tend to drop. We discussed, at length, that patient does not have any evidence of calculi on CT currently. She does have an upcoming appointment on March 28 with urology in [place]. Advised her she could strain her urine in the meanwhile. Advised her to follow-up with her primary care. Return to ER as needed for new or worsening symptoms. Lab Data Radiology Impressions Abdomen/Pelvis CT 03/03/22 15:05 IMPRESSION: 1. Limited noncontrast examination without CT evidence of acute intra-abdominal or pelvic pathology. 2. Additional findings, as above. COMMENTS: Consistent with the [employer]'s Incidental Findings Committee white paper (J Am Sara Radiol 2018): Any incidental renal lesion less than 1 cm or classified as too small to characterize, or any incidental cystic renal lesion characterized as simple-appearing, is likely benign. No follow-up imaging is recommended for these lesions per consensus recommendations based on imaging criteria. Laboratory Results HCG, Qual Negative (Negative) 03/03/22 14:46 Urine Color Yellow (Yellow) 03/03/22 14:46 Urine Appearance Clear (CLEAR) 03/03/22 14:46 Urine pH 6.5 (5-7) 03/03/22 14:46 Ur Specific [place] 1.010 (1.005-1.030) 03/03/22 14:46 Urine Protein Trace (Negative) 03/03/22 14:46 Urine Glucose (UA) Norm (Normal) 03/03/22 14:46 Urine Ketones Negative (Negative) 03/03/22 14:46 Urine Blood 3+ (Negative) H 03/03/22 14:46 Urine Nitrate Negative (Negative) 03/03/22 14:46 Urine Bilirubin Neg (Negative) 03/03/22 14:46 Urine Urobilinogen Neg mg/dL (Negative) 03/03/22 14:46 Ur Leukocyte Esterase 2+ (Negative) H 03/03/22 14:46 Urine RBC None /hpf (0-2) 03/03/22 14:46 Urine WBC 25-40 /hpf (0-5) H 03/03/22 14:46 Ur Squamous Epith Cells 0-4 /hpf (0-5) H 03/03/22 14:46 Amorphous Sediment Not Reportable 03/03/22 14:46 Urine Bacteria 2+ /hpf (NONE) H 03/03/22 14:46 Discharge Plan Discharge Patient Disposition: Home Clinical Impression: Renal colic on left side, Hematuria Condition: Stable Prescriptions: New ketorolac 10 mg tablet 10 mg PO Q6H PRN (Reason: pain) 3 Days Qty: 12 0RF No Action tretinoin 0.1 % cream 1 applic topical Q3D Qty: 45 2RF Rx Instructions: Apply peasized amount to clean dry face. Avoid sensitive areas such as undereye, and folds of nose. metoprolol tartrate 100 mg tablet 100 mg PO DAILY hydroxyzine HCl 25 mg tablet 25 mg PO BID PRN (Reason: anxiety) Qty: 60 1RF sulfamethoxazole-trimethoprim [Bactrim DS] 800-160 mg tablet 1 tab PO BID 5 Days Qty: 10 0RF red yeast rice 600 mg tablet 600 mg PO BID Rx Instructions: give with meal/snack coenzyme Q10 100 mg capsule 100 mg PO DAILY [place]-3 Krill Oil [id number] mg capsule 1 cap PO DAILY metoprolol tartrate 50 mg tablet 50 mg PO DIRECTED Qty: 90 5RF Rx Instructions: Dose increased: Take 2 tabs every morning, and 1 tab every evening. Zofran 4 mg tablet 4 mg PO Q6H PRN (Reason: nausea and vomiting) Qty: 10 0RF fluticasone propionate [Flonase] 50 mcg/actuation [place],Suspension 1 - 2 spray INTRANASAL DAILY PRN (Reason: Allergy Symptoms) Salonpas (lidocaine) 4 % Adhesive Patch,Medicated 1 patch TOPICAL DAILY PRN (Reason: Pain) Discharge Orders: Discharge ED (Routine); Ordered 03/03/22 Ordered By: Aidee Zhang Referrals: Janene Gilmore DO [Primary Care Provider] - Discharge Diet: Usual diet Discharge Activity: Increase activity as tolerated Patient Instructions: Renal Colic (ED) Activity Restrictions/Additional Instructions: Take Toradol as directed. No ibuprofen while taking Toradol. Make sure that you are drinking plenty of water. Call your primary care provider to follow-up. Return to the ER as needed for new or worsening symptoms, fever, chills, vomiting, inability to keep down oral fluids, decreased urination. Coding Level of Care Code ED Hand Or Machine Paster for Ferming Fwd Exam Detailed
[2022-03-03 15:33] LABS: Add Urine Culture? Yes; Bacteria Urine 2+ /hpf; Squamous Epithelial Cell Urine 0-4 /hpf (0-5); WBC Urine 25-40 /hpf (0-5)
[2022-03-03] MEDS: ketorolac 60 mg/2 mL INJ IM (15:40)
[2022-03-03 16:28] VITALS: PULSE 84; O2SAT 99
== END 2022-03-03 16:29 | disposition home or self-care (01) ==
PROVIDERS: Emergency Medicine; Emergency Provider Nurse Practitioner Family; PCP Family Medicine
DX: N23 Unspecified renal colic (principal); R31.9 Hematuria, unspecified
CPT/HCPCS: 74176; 81001; 81025; 87077; 87086; 87186; 96372; 99284; J1885

== ENCOUNTER 2023-02-26 09:03 | Outpatient (CLI) | payer MEDICAID, SELFPAY ==
--- NOTE | 2023-02-26 09:07 | MM_ITS ---
WS: [id number] BILATERAL SCREENING DIGITAL TOMOSYNTHESIS MAMMOGRAM WITH CAD HISTORY: SCREENING COMPARISON: 08/17/2015, 07/02/2010 Bilateral CC and MLO views with tomosynthesis and synthetic mammography submitted. Computer aided det ection analyzed. Breast composition: There are scattered areas of fibroglandular density. No suspicious masses, microc alcifications or architectural distortion. Long-term stability slightly lobulated mass in the anterio r lateral LEFT breast. IMPRESSION: MM/[place] [id number] BI-RADS: 2-Benign FOLLOW UP: 1 Year Follow-up
== END 2023-02-26 09:04 | disposition home or self-care (01) ==
LOC: RAD 09:03
PROVIDERS: PCP Family Medicine; Visit Provider Family Medicine
DX: Z12.31 Encounter for screening mammogram for malignant neoplasm of breast (principal)
CPT/HCPCS: 77063; 77067

== ENCOUNTER 2023-07-25 15:14 | Outpatient (CLI) | payer OTHER, SELFPAY ==
--- NOTE | 2023-07-25 15:22 | USCV_ITS ---
Regine Nova Age: 43 Gender: F : 1980 Exam Date: 07/25/2023 15:55 Ordering Phys: Nidia Castillo Technologist: CT Exam Location: [facility] [place] Indication: pain PROCEDURES: Venous duplex imaging was performed in only the right lower extremity. On the right side, the common femoral, superficial femoral, profunda femoral, popliteal, posterior tibial, greater saphenous veins and the peroneal trunk were identified and interrogated in the standard fashion. These veins were found to be easily compressible with spontaneous blood flow. No evidence of insufficiency or thrombus noted. CONCLUSIONS No evidence of right lower extremity DVT. Rodney Ang MD (Electronically Signed) Final Date: 25 July 2023 16:27 S
== END 2023-07-25 15:15 | disposition home or self-care (01) ==
PROVIDERS: PCP Family Medicine; Visit Provider Nurse Practitioner Family
DX: M79.604 Pain in right leg (principal)
CPT/HCPCS: 93971

== ENCOUNTER 2024-06-08 07:32 | Outpatient (CLI) | payer OTHER, SELFPAY ==
--- NOTE | 2024-06-08 07:36 | MM_ITS ---
WS: [id number] BILATERAL 3D TOMOSYNTHESIS DIGITAL SCREENING MAMMOGRAPHY WITH CAD CLINICAL INFORMATION: SCREENING HISTORY: Screening mammogram. No current complaints. COMPARISON: 2022 TECHNIQUE: Bilateral CC and MLO views. FINDINGS: Scattered fibroglandular densities bilaterally. No suspicious focal mass, asymmetry, calcifications, or architectural distortion. No evidence of malignancy. MM/MM scr BI tomosynthesis [id number] IMPRESSION: DENSITY: There are scattered areas of fibroglandular density. BI-RADS: 1 - Negative. FOLLOW UP: 1 Year Follow-up Recommend return to annual screening mammography.
== END 2024-06-08 07:33 | disposition home or self-care (01) ==
PROVIDERS: PCP Family Medicine; Visit Provider Nurse Practitioner Family
DX: Z12.31 Encounter for screening mammogram for malignant neoplasm of breast (principal); R92.323 Mammographic fibroglandular density, bilateral breasts
CPT/HCPCS: 77063; 77067

== ENCOUNTER 2024-08-20 14:37 | Outpatient (CLI) | payer OTHER, SELFPAY ==
--- NOTE | 2024-08-20 15:00 | XR_ITS ---
WS: [id number] Exam: XR lumbar spine min 4V [id number] Date/Time of Exam: 08/20/2024 3:09 PM Reason For Exam: CHRONIC MIDLINE LOW BACK PAIN W/O SCIATICA Comparison 03/17/2015. No fracture. Sacralization of L5. Posterior elements are intact. Degeneration of the L5-S1 disc. Mild dextroscoliosis. IMPRESSION1. No fracture. 2. Sacralization of L5 with disc degeneration at L5-S1. Slight scoliosis.
== END 2024-08-20 14:38 | disposition home or self-care (01) ==
PROVIDERS: PCP Family Medicine
DX: M51.379 Other intervertebral disc degeneration, lumbosacral region without mention of lumbar back pain or lower extremity pain (principal); G89.29 Other chronic pain; M43.27 Fusion of spine, lumbosacral region
CPT/HCPCS: 72110

== ENCOUNTER 2024-12-17 16:42 | Outpatient (CLI) | payer OTHER, SELFPAY | END 2024-12-17 16:43 | disposition home or self-care (01) | PROVIDERS: Visit Provider Nurse Practitioner Family | DX: B07.8 Other viral warts (principal) | CPT/HCPCS: 36415; 84630 ==